=== PATIENT | female | born 1945 | race Asian ===

== ENCOUNTER 2025-02-18 16:48 | Emergency (ER) | payer MEDICARE, MEDICAID, SELFPAY ==
[2025-02-18 17:04] VITALS: BP 173/104; PULSE 75; PULSE 98; RESP 20; RESP 29; TEMP 36.6; O2SAT 87; O2SAT 89; BMI 32.5
--- NOTE | 2025-02-18 17:13 | EDNOTE_ITS ---
ED OB Contraction Preg RMI/HPI General Chief complaint: Vaginal Bleeding Stated complaint: ALTERED Time Seen by Provider: 02/18/25 17:09 Arrival date/time: 02/18/25 16:48 RME / HPI RME / HPI Narrative: 80 year old female with history of CVA with hemiplegia and hemiparesis, atrial fibrillation, hypertension, hyperlipidemia presents to the ED BIBA from [facility] for evaluation of vaginal bleeding today. Per medics, [place] staff rep orted patient began bleeding at 12 noon today and progressively worsening. On their arrival noted a copious amount of bleeding from vagina and placed dressing prior to transport. Per medics, [facility] staff reported history of previous vaginal bleed however were not able to provide any additional details or history stating they were not well acquainted with the patient. Medics state en route noted patient to have episodes of confusion and a GCS of 14. Baseline mental status unknown. Patient is a poor historian and unable to provide any additional history. Related Data Home Medications ?Medication ?Instructions ?Recorded ?Confirmed amlodipine 2.5 mg tablet 2.5 mg PO QDAY 11/07/2105/12 atorvastatin 10 mg tablet 10 mg PO HS 11/07/21 3 acetaminophen 325 mg tablet 650 mg PO Q6HR PRN Pain 06/08/23 apixaban 5 mg tablet (Eliquis) 1 tab PO BID 07/09/22 0 06/08/23 latanoprost 0.005 % eye drops 1 drp ophthalmic (eye) H S 07/09/22 06/08/23 oxybutynin chloride 5 mg 1 tab PO QDAY 07/09/2206/08 tablet,extended release 24 hr cholecalciferol (vitamin D3) 25 2,000 unit PO QDAY 06/08/23 mcg (1,000 unit) tablet metoprolol tartrate 25 mg tablet 25 mg PO QDAY 3 06/08/23 bisacodyl 10 mg rectal suppository 10 mg ND UD PRN Con stipation 06/08/23 06/08/23 (Dulcolax (bisacodyl)) magnesium hydroxide 400 mg/5 mL 30 ml PO Q24H PRN Cons tipation 06/08/23 06/08/23 oral suspension (Milk of Magnesia) pantoprazole 40 mg tablet,delayed 40 mg PO QDAY GERD 0 06/08/23 06/08/23 release (Protonix) sodium phosphates 19 gram-7 118 ml ND Q72H PRN Constip ation 06/08/23 06/08/23 gram/118 mL enema (Fleet Enema) Allergies Allergy/AdvReac Type Severity Reaction Status Date / Time codeine Allergy Verified 05/28/23 15:02 Review of Systems Review of Systems Narrative Review of Systems: GEN: No fever, no chills EYES: No discharge, no pain HEENT: No ear pain, no congestion, no sore throat PULM: No shortness of breath, no cough, no congestion CV: No chest pain, no palpitations GI: No nausea, no vomiting, no diarrhea, no pain, no constipation : +vaginal bleeding. No frequency, no urgency, no dysuria MUSC/SKEL: No joint pain, no back pain SKIN: No rash PSYCH: No hallucinations, no depression HEME/LYMPH: +hx of eliquis use although not on current medication list, +hx of vaginal and rectal bleeding. NEURO: No weakness, no headache Past Medical History Past Medical History NEUROLOGIC: Positive Cerebrovascular Accident and Dementia CARDIAC: Positive Myocardial Infarction, Cardiac Arrhythmia, Atrial Fibrillation, Hypercholesterolemia and Hypertension GASTROINTESTINAL: Positive Gastrointestinal Bleed and Hemorrhoids MUSCULOSKELETAL: Positive Musculoskeletal Disorders, Arthritis, Osteoporosis and Fractures ENT: Positive Glaucoma OTHER HISTORY: Positive Falls Family History FAMILY HISTORY: Negative Family Respiratory Disorders, Family Cardiac Disorders, Family Gastrointestinal Problems, Family Cancer, Family Surgery or Family Anesthesia Reaction Surgical History SURGICAL: Negative Cardiac Surgery, Open Heart Surgery, Coronary Artery Bypass Graft, Valve Replacement, Vascular Surgery, Cardiac Catheterization, Pacemaker, Angiogram, Endocrine Surgery, Thyroidectomy, Ear Surgery, Tympanostomy Tube, Eye Surgery, Nose Surgery, Oral Surgery, Tonsillectomy, Adenoidectomy, Cochlear Implant, Corneal Transplant, Abdominal Surgery, Gastric Bypass Surgery, Gastrostomy, Bowel Surgery, Nephrectomy, Transurethral Resection, Joint Replacement, Amputation, Arthroscopy, Neurologic Surgery, Brain Shunt, Mastectomy, Lumpectomy or Vasectomy Social History SMOKING STATUS: Never smoker SUBSTANCE USE: does not use ED Exam Narrative Physical exam: GENERAL APPEARANCE: Awake, well-developed, well-nourished, no acute distress HEENT: Normocephalic, atraumatic; pupils equal, round, reactive to light; EOMI; mucous membranes pink, moist; oropharynx clear NECK: Supple LUNGS: CTABL; no wheezes, no rales, no rhonchi HEART: Regular rate, regular rhythm; normal S1, S2; no murmurs ABDOMEN: non distended; normal BS; soft, no tenderness, no guarding, no rebound; no masses, no organomegaly, no hernia PELVIC EXAM: Passing multiple clots vaginally, suctioned copious amount of blood from vagina, patient has a pessary device, BACK: no CVA tenderness EXTREMITIES: atraumatic; no edema NEUROLOGIC: awake; alert; cranial nerves II-XII grossly intact PSYCHIATRIC: appropriate mood and affect SKIN: warm, dry, normal color; no rashes Course Course Course Narrative: 1735: OBGYN Dr. Robles at bedside Quality Measures none Orders Category Date Time Status CT head/brain wo con Stat Exams 02/19/25 07:27 Taken Blood Culture (Lab) Stat Lab 02/19/25 08:05 Received CBC Stat Lab 02/18/25 17:30 Completed CBC Stat Lab 02/19/25 02:21 Completed CMP [Comprehensive Metabolic Panel] Stat Lab 02/18/25 17:30 Completed CMP [Comprehensive Metabolic Panel] Stat Lab 02/19/25 07:28 Received Lactate (Lactic Acid) Stat Lab 02/19/25 08:12 Completed PT [Prothrombin Time with INR] Stat Lab 02/18/25 17:30 Completed PT [Prothrombin Time with INR] Stat Lab 02/19/25 08:12 Received PTT [Partial Thromboplastin Time] Stat Lab 02/18/25 17:30 Completed Urinalysis, C/S if Indicated Stat Lab 02/19/25 07:29 Ordered Venous Blood Gas Stat Lab 02/19/25 08:12 Completed Morphine Inj Med 02/18/25 18:03 Discontinued 4 mg IVP X1 ONE Ondansetron Inj [Zofran Inj] Med 02/18/25 18:03 Discontinued 4 mg IV X1 ONE Vital Signs Vital signs: Vital Signs Temperature 97.9 F 02/18/25 17:04 Pulse Rate 75 02/18/25 17:04 Respiratory Rate 29 H 02/18/25 17:04 Blood Pressure 173/104 H 02/18/25 17:04 Pulse Oximetry (%) 89 L 02/18/25 17:04 Vaginal Bleeding MDM Narrative MDM Narrative: ILetha, am scribing for and in the presence of Dr. Tan. Patient data External records reviewed:: [facility] previous records, EMS form and Skilled Nursing records (I reviewed txfer ppw from [facility] ) Clinical information provided by:: EMS Social determinants that could affect healthcare access:: housing (SNF resident ) Patient has the following chronic illnesses:: CVA with hemiplegia and hemiparesis, atrial fibrillation, hypertension, hyperlipidemia Hx of vaginal and rectal bleed How is presenting disease/condition affected by chronic disease/condition?: exacerbated by Evaluation data The following diagnostics were reviewed and interpreted by me:: lab results Lab and/or radiology exams considered but not ordered:: None Interpretation Summary: No labs resulted prior to discharge Medications / Prescriptions Medications or Prescriptions considered but not ordered:: None Medication administrations:: Medication Administration History Discontinued Medications Morphine Sulfate (Morphine Sulf Inj 10 Mg/Ml Vial) 4 mg IVP X1 ONE Stop: 02/18/25 18:04 Last Admin: 02/18/25 18:11 Dose: 4 mg Documented By: TRIXIE Ondansetron HCl (Ondansetron Inj 2 Mg/Ml Inj 2 Ml) 4 mg IV X1 ONE; Protocol Stop: 02/18/25 18:04 Last Admin: 02/18/25 18:10 Dose: 4 mg Documented By: TRIXIE See above Consultations Consultation(s) initiated? (list below): Yes Consultation #1 (Physician, Specialty, Details): I spoke with OB Dr. Robles, states she will come down and evaluate the patient. Time: 17:15 Consultation #2 (Physician, Specialty, Details): Dr. Robles reports she was unable to remove pessary in the ED and will take the patient to the OR. Diagnosis Vaginal Bleeding Differential Diagnosis: dysfunctional uterine bleeding, menometrorrhagia and vaginal bleeding Most likely diagnosis given after review of the tests above:: Vaginal bleeding Admission Indicated Admission indicated?: indicated Admission Request Was there a request for admission?: Yes Admission Attestation Admission request attestation: Discussed case with [] from Hospitalist service regarding admission. Discussed patients ED course, exam findings, labs, and radiology results. The Hospitalist [agrees,declines] to accept the patient for admission. Disposition Plan Disposition Plan: Admit (to Dr. Robles) Critical Care Time Critical Care Time Critical Care Time: Yes Total Critical Care Time (min.): 30 Attestation: The high probability of sudden, clinically significant deterioration in the patient's condition required the highest level of my preparedness to intervene urgently. The services I provided to this patient were to treat and/or prevent clinically significant deterioration. Services included the following: chart data review, reviewing nursing notes and/or old charts, documentation time, data governance consultant collaboration regarding findings and treatment options, medication orders and management, direct patient care, vital sign assessments and ordering, interpreting and reviewing diagnostic studies and lab tests. Aggregate critical care time includes only time during which I was engaged in work directly related to the patient's care, as described above, whether at bedside or elsewhere in the Emergency Department. It did not include time spent performing other reported procedures or the services of residents, students, nurses or physician assistants. Discharge Plan Plan Patient Disposition: [facility] Pt Being Transferred to: [facility] Service Needed for Transfer: Urogynecology Disposition Comment: Accepted by Dr. Orourke Prescriptions/Referrals Prescriptions/Med Rec: No Action latanoprost 0.005 % drops 1 drp OPHTHALMIC (EYE) HS Rx Instructions: sánchez. eyes acetaminophen 325 mg Tablet 650 mg PO Q6HR PRN (Reason: Pain) Rx Instructions: do not exceed 3gm in 24 hrs oxybutynin chloride 5 mg tablet extended release 24hr 1 tab PO QDAY Eliquis 5 mg tablet 1 tab PO BID atorvastatin 10 mg tablet 10 mg PO HS amlodipine 2.5 mg tablet 2.5 mg PO QDAY Rx Instructions: hold for BP <110/60 or HR <60 cholecalciferol (vitamin D3) 25 mcg (1,000 unit) Tablet 2,000 unit PO QDAY metoprolol tartrate 25 mg tablet 25 mg PO QDAY Rx Instructions: hold for BP <110/60 or HR <60 magnesium hydroxide [Milk of Magnesia] 400 mg/5 mL Suspension 30 ml PO Q24H PRN (Reason: Constipation) Rx Instructions: give every 24hours as needed for constipation if no BM for 3 days bisacodyl [Dulcolax (bisacodyl)] 10 mg Suppository 10 mg ND UD PRN (Reason: Constipation) Rx Instructions: Q48 HRS PRN Fleet Enema 19-7 gram/118 mL Enema 118 ml ND Q72H PRN (Reason: Constipation) Rx Instructions: to be administered if dulcolax suppository is ineffective pantoprazole [Protonix] 40 mg tablet,delayed release (DR/EC) 40 mg PO QDAY Referrals: No Primary/Family,Physician [Primary Care Provider] - In 1 week Problem List Clinical Impression: Vaginal pessary erosion into vaginal wall Patient/Caregiver Discharge Instructions Print Language: Kiswahili Stand Alone Forms: [employer] Award Info., Patient Portal Info Letter
[2025-02-18 17:24] VITALS: RESP 20; RESP 89; O2SAT 95
[2025-02-18 17:31] VITALS: PULSE 68
--- NOTE | 2025-02-18 17:36 | PC.NURSE ---
OB provider at bedside to evaluate pt
--- NOTE | 2025-02-18 17:56 | PC.NURSE ---
er provider at bedside. suctioned vaginal area with 100cc output
--- NOTE | 2025-02-18 18:09 | PC.NURSE ---
ob provider reattampted to remove pessary. unsuccessful
[2025-02-18] MEDS: ONDANSETRON INJ 2 MG/ML INJ 2 ML 4 MG IV (18:10)
[2025-02-18] MEDS: MORPHINE SULF INJ 10 MG/ML VIAL 4 MG IVP (18:11)
[2025-02-18 18:28] LABS: Basophils % (Auto) 0 % (0-2.5); Eosinophils # (Auto) 0.1 Thou/mm3 (0.0-0.5); Eosinophils % (Auto) 1 % (0-10); Hematocrit 49.8 % (36.0-46.0); Immature Granulocytes % (Auto) 0 % (0-0); Immature Granulocytes Auto 0.05 Thou/mm3 (0.00-0.00); Lymphocytes # (Auto) 1.4 Thou/mm3 (1.0-4.8); Lymphocytes % (Auto) 10 % (10-50); Mean Corpuscular HGB Conc 32.1 g/dl (31.0-37.0); Mean Corpuscular Hemoglobin 29.3 pg (25.0-35.0); Mean Corpuscular Volume 91 fL (80-100); Monocytes # (Auto) 1.2 Thou/mm3 (0.0-0.8); Monocytes % (Auto) 8 % (0-12); Neutrophils # (Auto) 11.9 Thou/mm3 (1.8-7.7); Neutrophils % (Auto) 81 % (37-80); Nucleated Red Blood Cell % 0 /100 WBC (0); Platelet Count 266 Thou/mm3 (140-440); RDW Standard Deviation 46.1 fL (36.4-46.3); Red Blood Count 5.46 Miln/mm3 (4.00-5.20); White Blood Count 14.6 Thou/mm3 (3.6-11.0)
--- NOTE | 2025-02-18 18:31 | ESCONSULT_ITS ---
SEX OFFENDER TREATMENT PROFESSIONAL HPI Data of Consult Primary Care Provider: Physician No Primary/Family Consult Narrative History of present illness: Ranjith is an 80yo F with hx of CVA with hemiplegia and hemiparesis, a-fib, HTN, hyperlipidemia presenting to the ED BIBA from [facility] for evaluation of vaginal bleeding today. Per medics, [place] staff reported patient began bleeding at 12 noon today and progressively worsening. On their arrival noted a copious amount of bleeding from vagina and placed dressing prior to transport. Per medics, [facility] staff reported history of previous vaginal bleed however were not able to provide any additional details or history stating they were not well acquainted with the patient. Medics state en route noted patient to have episodes of confusion and a GCS of 14. Baseline mental status unknown. Patient is a poor historian. She states that pessary was placed at least 5 years ago, and has not been regularly taken out and cleaned during that time. It was placed because she was uncomfortable all the time, sitting, going out, doing anything. She is not sure if it was placed for cystocele or uterine prolapse. Unable to give any further details. Dr. Tan performed a speculum exam and noted a pessary within the vagina. States approx 150ml of blood suctioned from vagina. cc:: cc: Review of Systems Review of Systems ROS Unobtainable: unobtainable due to mental status Meds Home Medications and Allergies Home Medications ?Medication ?Instructions ?Recorded ?Confirmed ?Type amlodipine 2.5 mg tablet 2.5 mg PO QDAY 11/07/2105/12 History atorvastatin 10 mg tablet 10 mg PO HS 11/07/21 3 History acetaminophen 325 mg tablet 650 mg PO Q6HR PRN Pain 06/08/23 History apixaban 5 mg tablet (Eliquis) 1 tab PO BID 07/09/22 0 06/08/23 History latanoprost 0.005 % eye drops 1 drp ophthalmic (eye) H S 07/09/22 06/08/23 History oxybutynin chloride 5 mg 1 tab PO QDAY 07/09/2206/08 History tablet,extended release 24 hr cholecalciferol (vitamin D3) 25 2,000 unit PO QDAY 06/08/23 History mcg (1,000 unit) tablet metoprolol tartrate 25 mg tablet 25 mg PO QDAY 2 3 06/08/23 History bisacodyl 10 mg rectal suppository 10 mg NH UD PRN Con stipation 06/08/23 06/08/23 History (Dulcolax (bisacodyl)) magnesium hydroxide 400 mg/5 mL 30 ml PO Q24H PRN Cons tipation 06/08/23 06/08/23 History oral suspension (Milk of Magnesia) pantoprazole 40 mg tablet,delayed 40 mg PO QDAY GERD 0 06/08/23 06/08/23 History release (Protonix) sodium phosphates 19 gram-7 118 ml NH Q72H PRN Constip ation 06/08/23 06/08/23 History gram/118 mL enema (Fleet Enema) Allergies Allergy/AdvReac Type Severity Reaction Status Date / Time codeine Allergy Verified 05/28/23 15:02 Exam - SEX OFFENDER TREATMENT PROFESSIONAL Vital Signs Temp Pulse Resp BP Pulse Ox O2 Flow Rate 97.9 F 68 20 173/104 H 95 3 02/18/25 17:04 02/18/25 17:31 02/18/25 17:24 02/18/25 17:04 02/18/25 17:24 02/18/25 17:24 Narrative Exam General: well developed, well nourished, no acute distress Cardiac: normal heart rate Lungs: breathing without distress Abdomen: soft, non-tender, no rebound or guarding Extremities: no edema of BLE Female RN home theater expert was present for examinations. SCE: NEFG, end of Gelhorn pessary visible with small amount of blood noted in the vaginal vault. I attempted to remove the pessary by grasping the end of the Gelhorn, but the base of the pessary is deeply impacted in the vaginal tissue and patient was uncomfortable with removal attempt, so I re-attempted once more after she was given zofran 4g IV x1 with morphine 4g IV x1. Again, the Gelhorn would only move forward a meer couple centimeters, but no further because the vaginal tissue has narrowed around it with time and wedged it in. Unable to place a finger behind the pessary to reduce suction. Unable to observe what area has eroded as the source of bleeding. Patient had loss of urine during the pessary removal attempts, unable to determine if she has vesicovaginal fistula vs simple urinary incontinence. There is a notable odor present. SEX OFFENDER TREATMENT PROFESSIONAL - Results Labs 02/18/25 17:30 02/18/25 17:30 Assessment and Plan Assessment and plan (1) Vaginal pessary erosion into vaginal wall: Status: Acute Assessment and plan: Ranjith is an 80yo F with hx of CVA with hemiplegia and hemiparesis, a-fib, HTN, hyperlipidemia with impacted Gelhorn pessary s/p placement > 5 years ago with no pessary maintenance since, presenting with vaginal bleeding likely related to vaginal erosion. Based on Dr. Tan (ER physician) and my encounters, approximately 200ml of blood per vagina from prior to and during ER encounter. Not actively hemorrhaging, but having continuous slow bleeding. She has no tachycardia or hypotension, hemodynamically stable at this time. Unable to remove Gelhorn pessary to further evaluate and address erosion. My recommendation is for Ranjith to be transferred to a facility that has a Uro- Vehicle Leasing And Rental Manager that is well-versed in removing impacted pessaries, treating severe vaginal erosion and able to rule out (and treat if present) fistula. I discussed my recommendation and rationale with Dr. Celestin. (2) Vaginal bleeding: Status: Acute (3) Problem with vaginal pessary: Status: Acute (3) Problem with vaginal pessary Qualifiers: Encounter type: initial encounter Qualified Code(s): T83.9XXA - Unspecified complication of genitourinary prosthetic device, implant and graft, initial encounter
--- NOTE | 2025-02-18 18:34 | PD.EDADDENDU ---
Emergency Room Addendum Addendum Narrative: 183: Spoke with Dr. Robles, MATTRESS AND BOXSPRINGS SUPERVISOR, who states the patient needs a higher [id number] for uro-gynecology that is well-versed in removing impacted pessaries, treating severe vaginal erosion and able to rule out (and treat if present) fistula. See her note for full details. The patient was placed in ED observation care at 02/18/25 at 1830 hours. The patient was placed in ED observation care because of pending transfer. The patients past medical history, social history, and family history were reviewed. Patient is hemodynamically stable. Will hold Eliquis and recheck HnH in 6 hours. There is no blood clots noted in the patient's vaginal area per Dr. Robles's evaluation. [facility] declined the patient for transfer due to not having the available services. 2106: Spoke with [facility]'s transfer center. Awaiting callback on whether or not they accept the patient for transfer. 2206: Spoke with [facility]'s transfer center. They spoke with their dam tender, Dr. Wade, who declined the patient for transfer due to needing a higher [id number]. Recommends [facility] or [facility]. 0117: [facility] declined the patient due to being at capacity. 0203: Spoke with [facility]'s transfer center. Declined the patient for transfer due to not having the available services. Repeat HnH is 14.9/45.8. She remains hemodynamically stable. [facility] declined the patient for transfer due to not having the available services. 0439: Blood pressure is 117/73 with a HR of 99 and RR of 16. She is saturating at 95% on room air. Spoke with [facility] transfer center. Dr. Orourke accepts the patient for transfer.
[2025-02-18 18:38] LABS: Alanine Aminotransferase 18 U/L (10-49); Albumin, Serum 3.6 gm/dL (3.4-4.8); Albumin/Globulin Ratio 1.3 (1.2-2.2); Alkaline Phosphatase 118 U/L (46-116); Anion Gap 4 (7-16); Aspartate Amino Transferase 18 U/L (0-34); BUN/Creatinine Ratio 18 Ratio (12-20); Bilirubin,Total 0.8 mg/dL (0.3-1.2); Blood Urea Nitrogen 9 mg/dL (9-23); Calcium (Corrected) 9.3 mg/dL (8.5-10.1); Carbon Dioxide 34.6 mMol/L (20.0-31.0); Chloride 102 mMol/L (98-107); Creatinine (Component) 0.5 mg/dL (0.6-1.3); Estimated Creatinine Clearance 93.7 mL/min (>60); Globulin 2.8 gm/dL (2.3-3.5); Glucose 105 mg/dL (74-106); Osmolality,Calculated 279 (275-295); Potassium 4.2 mMol/L (3.4-5.1); Sodium 141 mMol/L (136-145); Total Protein 6.4 gm/dL (5.7-8.2); eGFR > 60 See Note
[2025-02-18 19:10] LABS: Partial Thromboplastin Time 48.4 Seconds (22.0-36.0)
[2025-02-18 19:11] VITALS: PULSE 78; PULSE 86; RESP 17; O2SAT 95
[2025-02-18 19:11] LABS: Prothrombin Time > 63.0 Seconds (9.0-12.2)
--- NOTE | 2025-02-18 20:19 | PC.NURSE ---
FAXED INFORMATION TO [facility].
--- NOTE | 2025-02-18 20:20 | PC.NURSE ---
MICHELET PERSAUD FROM [facility] SAID THEY DON'T HAVE URO-MASTER YACHT.
--- NOTE | 2025-02-18 22:11 | PC.NURSE ---
[facility] CALLED BACK, DECORATING AND ASSEMBLY SUPERVISOR SAID PT NEED HIGHER LEVEL OF CARE.
[2025-02-18 23:26] VITALS: BP 120/84; PULSE 96; RESP 16; O2SAT 96
[2025-02-19 01:03] VITALS: BP 115/70; PULSE 114; RESP 12; TEMP 36.8; O2SAT 97
--- NOTE | 2025-02-19 01:17 | PC.NURSE ---
CALLED AND FAXED INFORMATION TO [facility], PT IS DENIED DUE TO FULL CAPACITY.
[2025-02-19 02:29] LABS: Basophils % (Auto) 0 % (0-2.5); Eosinophils # (Auto) 0.1 Thou/mm3 (0.0-0.5); Eosinophils % (Auto) 1 % (0-10); Hematocrit 45.8 % (36.0-46.0); Hemoglobin 14.9 g/dL (12.0-16.0); Immature Granulocytes % (Auto) 0 % (0-0); Immature Granulocytes Auto 0.03 Thou/mm3 (0.00-0.00); Lymphocytes # (Auto) 1.3 Thou/mm3 (1.0-4.8); Lymphocytes % (Auto) 10 % (10-50); Mean Corpuscular HGB Conc 32.5 g/dl (31.0-37.0); Mean Corpuscular Hemoglobin 29.6 pg (25.0-35.0); Mean Corpuscular Volume 91 fL (80-100); Monocytes # (Auto) 1.1 Thou/mm3 (0.0-0.8); Monocytes % (Auto) 9 % (0-12); Neutrophils # (Auto) 10.7 Thou/mm3 (1.8-7.7); Neutrophils % (Auto) 80 % (37-80); Nucleated Red Blood Cell % 0 /100 WBC (0); Platelet Count 222 Thou/mm3 (140-440); RDW Standard Deviation 46.6 fL (36.4-46.3); Red Blood Count 5.03 Miln/mm3 (4.00-5.20); White Blood Count 13.3 Thou/mm3 (3.6-11.0)
--- NOTE | 2025-02-19 03:28 | PC.NURSE ---
[facility] , NO URO-LIFE TEACHER.
--- NOTE | 2025-02-19 04:00 | PC.NURSE ---
[facility] CALLED BACK , THEY DON'T HAVE URO-WORKERS COMPENSATION CLAIMS ANALYST SERVICES AVAILABLE .
--- NOTE | 2025-02-19 04:19 | PC.NURSE ---
CALLED [facility] AND GAVE THEM PT INFORMATION.
--- NOTE | 2025-02-19 04:43 | PC.NURSE ---
[facility] CALLED BACK AND TALKING TO DR. FLEMING.
[2025-02-19 05:21] VITALS: BP 113/79; PULSE 108; RESP 18; TEMP 37.2; O2SAT 95
--- NOTE | 2025-02-19 07:27 | XR_ITS ---
Examination: CT brain head without contrast. 2-D sagittal coronal reconstructions Date and time of exam:February 19, 2025 0836 hrs. Indications: Difficulty speaking this week CTDI: vol (mGy):48.2 DLP: (mGycm):961 Technique: Multiple CT axial sections of the brain have been obtained, 5 mm slice thickness. Contrast has not been administered. 2-D sagittal, coronal reconstructions have been obtained Low dose protocols were performed. One or more of the following dose reduction techniques were used; automated exposure control, adjustment of the mA and/or KV according to patient size, use of iterative reconstruction technique. Findings: No significant ventricular enlargement. Intra-axial or extra-axial hemorrhage density is not seen. No mass effect or midline shift Basal cisterns are not remarkable. Fourth ventricle is midline. Cranial vault intact. Impression: Negative for acute hemorrhage, mass effect or midline shift Consider brain MRI follow-up stroke protocol
--- NOTE | 2025-02-19 07:49 | PC.NURSE ---
Called [facility] and spoke to Tamica who confirm that this Pt does have expressive aphasia. Dr. Colin made aware.
[2025-02-19 08:18] LABS: Lactate (Lactic Acid) 0.8 mMol/L (0.4-2.0)
[2025-02-19 08:20] LABS: Base Excess, Venous 10 (-3-3); O2 Saturation, Venous 83 % (96-97); PCO2, Venous 70 mmHg (36-56); PO2, Venous 48 mmHg (15-58); pH, Venous 7.35 (7.33-7.66)
[2025-02-19 08:44] LABS: INR 1.1 (0.9-1.3); Prothrombin Time 11.6 Seconds (9.0-12.2)
[2025-02-19 08:48] LABS: Alanine Aminotransferase 15 U/L (10-49); Albumin, Serum 3.4 gm/dL (3.4-4.8); Albumin/Globulin Ratio 1.3 (1.2-2.2); Alkaline Phosphatase 100 U/L (46-116); Anion Gap 3 (7-16); Aspartate Amino Transferase 12 U/L (0-34); BUN/Creatinine Ratio 18 Ratio (12-20); Bilirubin,Total 1.8 mg/dL (0.3-1.2); Blood Urea Nitrogen 9 mg/dL (9-23); Calcium 9.1 mg/dL (8.3-10.6); Calcium (Corrected) 9.6 mg/dL (8.5-10.1); Carbon Dioxide 36.8 mMol/L (20.0-31.0); Chloride 100 mMol/L (98-107); Creatinine (Component) 0.5 mg/dL (0.6-1.3); Estimated Creatinine Clearance 93.7 mL/min (>60); Globulin 2.6 gm/dL (2.3-3.5); Glucose 103 mg/dL (74-106); Osmolality,Calculated 278 (275-295); Potassium 4.6 mMol/L (3.4-5.1); Sodium 140 mMol/L (136-145); eGFR > 60 See Note
--- NOTE | 2025-02-19 09:00 | PD.EDADDENDU ---
Emergency Room Addendum <Letha Patricia - Last Filed: 02/19/25 09:12> Addendum Narrative: 0600: Care assumed from Dr. Celestin, the previous shift emergency physician. Past medical, surgical, social and family history reviewed. Vitals and home medications reviewed. I will assume the care of the patient at this time, pending transfer to [facility]. Evidently EMS is scheduled to p/u patient at 09:30 AM. Please refer to the emergency department record for history and examination from initial visit.?The following addendum documentation note is intended to reflect any pending information, findings, or radiology results not included in the patient?s initial chart. EMS notes reviewed by me. Nursing notes reviewed by me. Vital signs reviewed by me. [facility] records reviewed by me. I reviewed txfer ppw from [facility]. [facility] records reviewed by me. 0720: On my assessment patient is noted to have expressive aphasia, head CT ordered. Additionally ordered repeat labs. 0745: Per RN who spoke with [facility] staff, patient at baseline has expressive aphasia and is currently on blood thinners. <Chace Colin MD - Last Filed: 02/19/25 09:12> Addendum Narrative: 0600: Care assumed from Dr. Celestin, the previous shift emergency physician. Past medical, surgical, social and family history reviewed. Vitals and home medications reviewed. I will assume the care of the patient at this time, pending transfer to [facility]. Evidently EMS is scheduled to p/u patient at 09:30 AM. Please refer to the emergency department record for history and examination from initial visit.?The following addendum documentation note is intended to reflect any pending information, findings, or radiology results not included in the patient?s initial chart. EMS notes reviewed by me. Nursing notes reviewed by me. Vital signs reviewed by me. [facility] records reviewed by me. I reviewed txfer ppw from [facility]. [facility] records reviewed by me. 0720: On my assessment patient is noted to have expressive aphasia, head CT ordered. Additionally ordered repeat labs. 0745: Per RN who spoke with [facility] staff, patient at baseline has expressive aphasia and is currently on blood thinners. When I saw this patient this morning she has an obvious expressive aphasia at the chart revealed no history of that yet she has had a previous stroke with dysphagia. She got a CT of the head since her PT was quite elevated and that was repeated and the PT came back normalized at 11.6. Suggest the first PT INR were is an error. We did [facility] found that this patient is presently at her baseline.. We tried to collect a cath urine for her but she continually leaks with blood and this was unsuccessful. CT images came back at 0911 hrs. I reviewed them and there is no obvious blood or fracture seen. There is some attenuated parenchyma most likely consistent with old stroke. The second CMP is still pending at 0912 hrs. EMS is here at 0910 hrs. taking report.
[2025-02-19 09:30] VITALS: BP 118/76; PULSE 86; RESP 18; TEMP 36.6; O2SAT 97
--- NOTE | 2025-02-19 09:54 | PC.NURSE ---
Called [facility] and spoke to Gabby PERSAUD to whom i gave report to
--- NOTE | 2025-02-19 12:19 | PRELIM_ITS ---
CT scan of the head without intravenous contrast (axial sections with sagittal and coronal reformats) February 19, 2025 0836 hours Clinical history: Expressive aphasia uncertain duration Compared with the prior study dated November 07, 2021 Findings: There is no evidence of intracranial hemorrhage, mass effect or midline shift. There are periventricular white matter hypodensities, compatible with chronic small vessel ischemia. The CSF spaces are prominent consistent with volume loss. There is atheromatous calcification of the intracranial arteries. The calvarium is unremarkable. The mastoid air cells and the visualized paranasal sinuses are clear. Impression: No evidence of intracranial hemorrhage, mass effect or midline shift. Chronic small vessel ischemia and volume loss, Please note that subtle early infarcts are better assessed using diffusion weighted MR imaging if clinically indicated. Report Electronically Signed By: Bebeto Knox 02/19/2025 12:18:11 PM [EST]
== END 2025-02-19 09:31 | disposition short-term general hospital (02) ==
PROVIDERS: Emergency Medicine; Emergency Provider Emergency Medicine
DX: T83.89XA Other specified complication of genitourinary prosthetic devices, implants and grafts, initial encounter (principal); N89.8 Other specified noninflammatory disorders of vagina; N93.9 Abnormal uterine and vaginal bleeding, unspecified; R47.01 Aphasia; I48.91 Unspecified atrial fibrillation; I10 Essential (primary) hypertension; E78.5 Hyperlipidemia, unspecified; F03.90 Unspecified dementia, unspecified severity, without behavioral disturbance, psychotic disturbance, mood disturbance, and anxiety; I69.359 Hemiplegia and hemiparesis following cerebral infarction affecting unspecified side; Z79.01 Long term (current) use of anticoagulants; Y76.2 Prosthetic and other implants, materials and accessory obstetric and gynecological devices associated with adverse incidents; Y84.8 Other medical procedures as the cause of abnormal reaction of the patient, or of later complication, without mention of misadventure at the time of the procedure
CPT/HCPCS: 36415; 70450; 80053; 81001; 82803; 83605; 85025; 85610; 85730; 87040; 96374; 96375; 99291; J2270; J2405

== ENCOUNTER 2025-05-15 08:10 | Emergency (ER) | payer MEDICARE, MEDICAID, SELFPAY ==
--- NOTE | 2025-05-15 08:19 | XR_ITS ---
Examination: AP chest single view Technique one AP portable semiupright chest single view Date and time: May 15, 2025, 0921 hrs. Comparison May 27, 2013 Indications: Chest pain shortness of breath today. Findings: Mild enlargement left ventricle Enlarged aneurysmal dilatation thoracic aorta. Mild vascular congestion. No lobar pneumonia or pulmonary edema Reversal shoulder arthroplasty Impression: Aneurysmal dilatation thoracic aorta. Mild vascular congestion.
--- NOTE | 2025-05-15 08:20 | PD.EDNEURO ---
Neuro Symptoms Deficit-RME/HPI General Chief Complaint: Altered Mental Status Stated Complaint: ALTERED Time Seen by Provider: 05/15/25 08:40 Arrival date/time: 05/15/25 08:10 RME / HPI RME / HPI Narrative: DR. ZHENG MAIN ED EVALUATION: This section includes all my notes and documentations, including HPI, PE, and ED course.? Bryce Zheng MD HPI: 80 year old female with past medical history hypertension, hyperlipidemia, CAD, dementia, OR, arthritis, and osteoporosis presents to the Emergency Department [facility] from [facility] with altered mental status 15-20 minutes prior to arrival. Patient is not alert and awake as normal and not verbal. Per EMS, BP was 175/90, HR 106, and hypoxic needing oxygen. No other obvious complaints. ROS: Can't obtain history from the patient due to AMS Physical Exam: General: Lethargic and nonverbal. Hypoxia noted. Eyes:? Conjunctivae and lids clear.? EOMI.? PERRL. ENT:? No nasal congestion.? Neck:? Supple.? No carotid bruit.? No JVD.?? Heart:? RRR.? Lungs:? No respiratory distress.? Good air movement.? No severe rhonchi, wheezing, rales.?? Abdomen:? Soft and nontender.? Legs:? No clubbing, cyanosis, edema.? Skin:? Warm and dry.?? Neuro: GCS 10. Eyes spontaneously open. Grunts occasionally (-4). Does not obey commands but localizes pain (-1). Right arm/leg weakness noted. Left arm/leg contractures noted. I reviewed EMS and alf notes. I reviewed all diagnostic test results. My interpretation of the EKG is sinus rhythm with no acute ST?T changes. My interpretation of the chest x-ray is NAD. My review of the head CT report is?large acute left basal ganglia hemorrhage. My review of the head/neck CTA report is NAD. Blood tests and urine tests remarkable for lactic acid 2.5 and LFT elevation. At this point, diagnoses include intracranial hemorrhage. Treatment here included IV fluid, Kcentra, and labetalol. Patient intubated to protect her airways. See procedure note. Etomidate 20 mg and succinylcholine 100 mg and propofol drip used. Endotracheal Intubation Procedure Note A time out was performed. My hands were washed immediately prior to the procedure. I wore a surgical cap, mask with protective eyewear, gown and gloves throughout the procedure. The patient was placed on a family advocate including continuous pulse oximetry. Rapid Sequence Intubation was conducted. The patient received 20 mg of Etomidate for induction and 100 mg of Succinylcholine for adequate paralysis. Using a 7.5 laryngoscope and a size 4 endotracheal tube with stylet, the patient was intubated on the first attempt. The stylet was removed and cuff balloon was inflated. Appropriate endotracheal tube position was confirmed by direct visualization of vocal cord passage, fogging of the tube, CO2 colormetric indicator and symmetric breath sounds. The tube was secured at 22 cm at the lips. Post intubation chest x-ray confirmed good position. Patient remained stable. I discussed the case with our telehealth neurologist.? About the presentation and exam and diagnostics and treatments here.? Recommended transfer to neurosurgery. I discussed the case with Dr. Arceo ([facility] Neurosurgery).? About the presentation and exam and diagnostics and treatments here.? And need of further care there. Accepted the patient. Bryce Zheng MD Related Data Home Medications ?Medication ?Instructions ?Recorded ?Confirmed amlodipine 2.5 mg tablet 2.5 mg PO QDAY 11/07/21 06/08/23 atorvastatin 10 mg tablet 10 mg PO HS 11/07/21 06/08/23 acetaminophen 325 mg tablet 650 mg PO Q6HR PRN Pain 07/09/22 06/08/23 apixaban 5 mg tablet (Eliquis) 1 tab PO BID 07/09/22 06/08/23 latanoprost 0.005 % eye drops 1 drp ophthalmic (eye) HS 07/09/22 06/08/23 oxybutynin chloride 5 mg 1 tab PO QDAY 07/09/22 06/08/23 tablet,extended release 24 hr cholecalciferol (vitamin D3) 25 2,000 unit PO QDAY 05/27/23 06/08/23 mcg (1,000 unit) tablet metoprolol tartrate 25 mg tablet 25 mg PO QDAY 05/27/23 06/08/23 bisacodyl 10 mg rectal suppository 10 mg AR UD PRN Constipation 06/08/23 06/08/23 (Dulcolax (bisacodyl)) magnesium hydroxide 400 mg/5 mL 30 ml PO Q24H PRN Constipation 06/08/23 06/08/23 oral suspension (Milk of Magnesia) pantoprazole 40 mg tablet,delayed 40 mg PO QDAY GERD 06/08/23 06/08/23 release (Protonix) sodium phosphates 19 gram-7 118 ml AR Q72H PRN Constipation 06/08/23 06/08/23 gram/118 mL enema (Fleet Enema) Allergies Allergy/AdvReac Type Severity Reaction Status Date / Time codeine Allergy Verified 05/15/25 08:52 Course Quality Measures none Orders Category Date Time Status Bedside Blood Glucose NOW Care 05/15/25 08:22 Active Bedside COVID-19 Antigen Test NOW Care 05/15/25 08:20 Active Bedside Influenza A&B Antigen Test NOW Care 05/15/25 08:20 Active Relay Telegrapher NOW Care 05/15/25 08:22 Active Continuous Pulse Oximetry NOW Care 05/15/25 08:22 Completed EKG (ED ONLY) *Do not use* NOW Care 05/15/25 08:22 Completed Spangler to [place] Routine Care 05/15/25 08:58 Ordered Insert IV NOW Care 05/15/25 08:22 Active Intubation NOW Care 05/15/25 09:06 Active NIH Stroke Scale now Care 05/15/25 08:22 Active NPO NOW Care 05/15/25 08:22 Active Nurse Swallow Screen x1 Care 05/15/25 08:22 Active Consult to Neurology / Tele-Neurology Routine Cons 05/15/25 08:22 Active Referral - Sales Trainee Stat Cons 05/15/25 08:44 Active Transfer to another facility [Transfer/Discharge] Stat Discharge 05/15/25 09:[address] angio stroke protocol Stat Exams 05/15/25 08:[address] stroke protocol Stat Exams 05/15/25 08:22 Completed EKG (ED Only) Stat Exams 05/15/25 08:22 Draft XR chest 1V portable Stat Exams 05/15/25 08:19 Completed XR chest 1V post procedure Stat Exams 05/15/25 09:50 Taken B-Type Natriuretic Peptide Stat Lab 05/15/25 08:30 Completed Bilirubin,Direct Stat Lab 05/15/25 09:30 Completed Blood Culture (Lab) Stat Lab 05/15/25 08:30 Received C-Reactive Protein Stat Lab 05/15/25 09:30 Completed CBC Stat Lab 05/15/25 08:30 Completed Comprehensive Metabolic Panel Stat Lab 05/15/25 09:30 Completed ESR [Sed Rate (ESR)] Stat Lab 05/15/25 08:30 Completed Free T4 (Free Thyroxine) Stat Lab 05/15/25 09:30 Completed Lactate (Lactic Acid) Stat Lab 05/15/25 09:30 Results Magnesium Stat Lab 05/15/25 09:30 Completed Partial Thromboplastin Time Stat Lab 05/15/25 08:30 Completed Procalcitonin Stat Lab 05/15/25 09:30 Completed Prothrombin Time with INR Stat Lab 05/15/25 08:30 Completed Thyroid Stimulating Hormone Stat Lab 05/15/25 09:30 Completed Troponin I Stat Lab 05/15/25 09:30 Completed Urinalysis Stat Lab 05/15/25 09:08 Completed Urine Culture Stat Lab 05/15/25 08:22 Received ESMOLOL in NS 2000 MG IVPB Med 05/15/25 08:45 Discontinued 2,000 mg in 100 ml IV 500 mcg/kg/min Etomidate Inj [Amidate Inj] Med 05/15/25 09:05 Discontinued 20 mg IVP X1 ONE Labetalol IV [Trandate IV] Med 05/15/25 08:21 Discontinued 10 mg IVP Q15M PRN Labetalol IV [Trandate IV] Med 05/15/25 10:40 Active 10 mg IVP Q15MIN PRN Labetalol IV [Trandate IV] Med 05/15/25 10:17 Discontinued 10 mg IVP X1 ONE Labetalol IV [Trandate IV] Med 05/15/25 10:12 Discontinued 100 mg .ROUTE .STK-MED ONE Ondansetron Inj [Zofran Inj] Med 05/15/25 08:21 Active 4 mg IVP Q4HR PRN Propofol 1,000 mg Ivpb [Diprivan Ivpb] Med 05/15/25 09:05 Active 1,000 mg in 100 ml IV 5 mcg/kg/min Prothrombin Complex Concent [Kcentra IV] 2,000 unit Med 05/15/25 08:50 Discontinued Sterile Water 80 ml Container,Empty 150 ml [Empty Container Bag 150 ml] 1 bag IV X1 Sodium Chloride 0.9% 1000 ml [Ns] 1,000 ml Med 05/15/25 08:30 Active IV Q10H Succinylcholine Inj [Anectine Inj] Med 05/15/25 09:05 Discontinued 100 mg IV X1 ONE Mechanical [Volume Ventilator] Stat RT 05/15/25 Active Oxygen Delivery NOW RT 05/15/25 08:22 Active Vital Signs Vital signs: Vital Signs Oxygen Flow Rate 4 05/15/25 08:22 Neuro Symptoms / Deficit MDM Narrative MDM Narrative:: I, Lisa Reynolds, am scribing for and in the presence of Dr. Zheng. 80 year old female with past medical history for hypertension, hyperlipidemia, CAD, dementia, OR, arthritis, and osteoporosis presents to the Emergency Department [facility] from [facility] with complaint of altered mental status 15-20 minutes prior to arrival, so about 750-755AM. Per EMS, alf reported the patient was altered including not talking, which is abnormal for her. Per EMS, BP was 175/90, HR 106, and satting at 98% on 2 L/min. No other complaints reported. Patient data External records reviewed:: [facility] previous records and EMS form Clinical information provided by:: EMS Social determinants that could affect healthcare access:: housing ([facility]) Patient has the following chronic illnesses:: Hypertension, hyperlipidemia, CAD, dementia, OR, arthritis, and osteoporosis. Code Status: Full code How is presenting disease/condition affected by chronic disease/condition?: exacerbated by Evaluation data The following diagnostics were reviewed and interpreted by me:: lab results, radiology exam(s) and EKG tracing(s) (My interpretation of the EKG is: Sinus rhythm (93 bpm) with nonspecific ST-T changes. Bryce Zheng MD) Lab and/or radiology exams considered but not ordered:: none Interpretation Summary: I reviewed all diagnostic test results. My interpretation of the EKG is sinus rhythm with no acute ST?T changes. My interpretation of the chest x-ray is NAD. My review of the head CT report is?large acute left basal ganglia hemorrhage. My review of the head/neck CTA report is NAD. Blood tests and urine tests remarkable for lactic acid 2.5 and LFT elevation. Medications / Prescriptions Medications or Prescriptions considered but not ordered:: none Medication administrations:: Medication Administration History Sodium Chloride (Ns) 1,000 mls @ 100 mls/hr IV Q10H LINDEN Stop: 06/14/25 08:29 Last Admin: 05/15/25 09:13 Dose: 100 mls/hr Documented By: TM Propofol (Diprivan Ivpb) 1,000 mg in 100 mls @ 2.265 mls/hr IV .Q24H PRN; Protocol PRN Reason: PER PROTOCOL Stop: 06/14/25 09:04 Last Titration: 05/15/25 10:35 Dose: 15 mcg/kg/min, 6.795 mls/hr Documented By: Titration: 05/15/25 10:11 Dose: 15 mcg/kg/min, 6.795 mls/hr Documented By: Titration: 05/15/25 10:06 Dose: 10 mcg/kg/min, 4.53 mls/hr Documented By: Admin: 05/15/25 10:01 Dose: 5 mcg/kg/min, 2.265 mls/hr Documented By: TM Co-signed By: JOSEPHINE Labetalol HCl (Labetalol Inj 5 Mg/Ml Vial 20 Ml) 10 mg IVP Q15MIN PRN PRN Reason: Blood Pressure - High Stop: 06/14/25 10:39 Ondansetron HCl (Ondansetron Inj 2 Mg/Ml Inj 2 Ml) 4 mg IVP Q4HR PRN PRN Reason: NAUSEA OR VOMITING Stop: 06/14/25 08:20 Discontinued Medications Etomidate (Etomidate Inj 2 Mg/Ml Vial 10 Ml) 20 mg IVP X1 ONE Stop: 05/15/25 09:06 Last Admin: 05/15/25 09:45 Dose: 20 mg Documented By: AMANDEEP Esmolol HCl (Esmolol In Ns 2000 Mg Ivpb) 2,000 mg in 100 mls @ 113.25 mls/hr IV .Q53M PRN; Protocol PRN Reason: PER PROTOCOL Stop: 06/14/25 08:44 Prothrombin Complex Concent ( Human) 2,000 unit/ Sterile Water 80 ml/ IV Miscellaneous Supplies 80 mls @ 320 mls/hr IV X1 ONE Stop: 05/15/25 09:04 Last Infusion: 05/15/25 09:45 Dose: Infused Documented By: Admin: 05/15/25 09:30 Dose: 320 mls/hr Documented By: TM Labetalol HCl (Labetalol Inj 5 Mg/Ml Vial 20 Ml) 10 mg IVP Q15M PRN PRN Reason: HIGH BP Labetalol HCl (Labetalol Inj 5 Mg/Ml Vial 20 Ml) 10 mg IVP X1 ONE Stop: 05/15/25 10:18 Last Admin: 05/15/25 10:24 Dose: 10 mg Documented By: TM Labetalol HCl (Labetalol Inj 5 Mg/Ml Vial 20 Ml) Confirm Administered Dose 100 mg .ROUTE .STK-MED ONE Stop: 05/15/25 10:13 Last Admin: 05/15/25 10:33 Dose: Not Given Documented By: TM Non-Admin Reason: Override Medication Succinylcholine Chloride (Succinylcholine Inj 20 Mg/Ml Vial 10 Ml) 100 mg IV X1 ONE Stop: 05/15/25 09:06 Last Admin: 05/15/25 09:47 Dose: 100 mg Documented By: TM Treatment here included IV fluid, Kcentra, and labetalol. Patient intubated to protect her airways. See procedure note. Etomidate 20 mg and succinylcholine 100 mg and propofol drip used. Consultations Consultation(s) initiated? (list below): Yes Consultation #1 (Physician, Specialty, Details): I discussed the case with our telehealth neurologist.? About the presentation and exam and diagnostics and treatments here.? Recommended transfer to neurosurgery. Consultation #2 (Physician, Specialty, Details): I discussed the case with Dr. Arceo ([facility] Neurosurgery).? About the presentation and exam and diagnostics and treatments here.? And need of further care there. Accepted the patient. Diagnosis Neuro Differential Diagnosis: convulsions, delirium, subarachnoid hemorrhage, cerebrovascular accident, transient cerebral ischemia and other (UTI, pneumonia, sepsis) Most likely diagnosis given after review of the tests above:: Intracranial hemorrhage Admission Indicated Admission indicated?: not indicated Explain why admission is indicated or not indicated:: No neurosurgery service here at this facility. Admission Request Was there a request for admission?: No Disposition Plan Disposition Plan: Transfer Critical Care Time Critical Care Time Critical Care Time: Yes Total Critical Care Time (min.): 48 Attestation: Due to a high probability of clinically significant, life threatening deterioration, the patient required my highest level of preparedness to intervene emergently and I personally spent this critical care time directly and personally managing the patient. This critical care time included obtaining a history; examining the patient; ordering and review of studies; arranging urgent treatment with development of a management plan; evaluation of patient's response to treatment; frequent reassessment; and discussions with family and other providers. It was exclusive of separately billable procedures and treating other patients and teaching time. Bryce Zheng MD Discharge Plan Plan Patient Disposition: [facility] Pt Being Transferred to: [facility] Service Needed for Transfer: Neurosurgery Prescriptions/Referrals Prescriptions/Med Rec: No Action latanoprost 0.005 % drops 1 drp OPHTHALMIC (EYE) HS Rx Instructions: sánchez. eyes acetaminophen 325 mg Tablet 650 mg PO Q6HR PRN (Reason: Pain) Rx Instructions: do not exceed 3gm in 24 hrs oxybutynin chloride 5 mg tablet extended release 24hr 1 tab PO QDAY Eliquis 5 mg tablet 1 tab PO BID atorvastatin 10 mg tablet 10 mg PO HS amlodipine 2.5 mg tablet 2.5 mg PO QDAY Rx Instructions: hold for BP <110/60 or HR <60 cholecalciferol (vitamin D3) 25 mcg (1,000 unit) Tablet 2,000 unit PO QDAY metoprolol tartrate 25 mg tablet 25 mg PO QDAY Rx Instructions: hold for BP <110/60 or HR <60 magnesium hydroxide [Milk of Magnesia] 400 mg/5 mL Suspension 30 ml PO Q24H PRN (Reason: Constipation) Rx Instructions: give every 24hours as needed for constipation if no BM for 3 days bisacodyl [Dulcolax (bisacodyl)] 10 mg Suppository 10 mg AR UD PRN (Reason: Constipation) Rx Instructions: Q48 HRS PRN Fleet Enema 19-7 gram/118 mL Enema 118 ml AR Q72H PRN (Reason: Constipation) Rx Instructions: to be administered if dulcolax suppository is ineffective pantoprazole [Protonix] 40 mg tablet,delayed release (DR/EC) 40 mg PO QDAY Referrals: Lakhwinder Lu MD [Primary Care Provider] - In 1 week Problem List Clinical Impression: Intracranial hemorrhage Patient/Caregiver Discharge Instructions Print Language: Slovenian Stand Alone Forms: [facility] Award Info., Patient Portal Info Letter
--- NOTE | 2025-05-15 08:22 | XR_ITS ---
Examination: CT brain head without contrast. 2-D sagittal coronal reconstructions Date and time of exam:May 2025 0829 hrs. CTDI: vol (mGy):47.8 DLP: (mGycm):963 Indications: Stroke alert, onset focal neurologic deficit today Technique: Multiple CT axial sections of the brain have been obtained, 5 mm slice thickness. Contrast has not been administered. 2-D sagittal, coronal reconstructions have been obtained Low dose protocols were performed. One or more of the following dose reduction techniques were used; automated exposure control, adjustment of the mA and/or KV according to patient size, use of iterative reconstruction technique. Findings: Large acute hemorrhage in the left basal ganglia which has ruptured into the ventricular system. Mass effect upon the left lateral ventricular system, shift of the frontal horns to the right 5 mm. Cranial vault is intact. Fourth ventricle midline Impression: Large acute left basal ganglia hemorrhage which has ruptured into the ventricular system with mass effect
--- NOTE | 2025-05-15 08:22 | EKG_ITS ---
[facility] Test Date: 2025-05-15 Pat Name: NATHANIEL BOOTH Department: Room: - Gender: Female [employer] Machine Operator: : [id number] Requested By: Bryce Phillips Order Number: [id number] Reading MD: Bryce Phillips Measurements Intervals [place] Rate: 93 P: 31 ME: 199 QRS: -40 QRSD: 85 T: 5 QT: 387 QTc: 484 Interpretive Statements SINUS RHYTHM POSSIBLE ANTERIOR MYOCARDIAL INFARCTION , PROBABLY OLD [30 ms Q WAVE IN V3/V4, OR R < 0.2 mV IN V4] INFERIOR MYOCARDIAL INFARCTION , PROBABLY OLD [40+ ms Q WAVE AND/OR ST/T ABNORMALITY IN II/aVF] Compared to ECG 05/27/2023 10:50:43 Sinus tachycardia no longer present Left-axis deviation no longer present Myocardial infarct finding still present /store/S0/[id number]/ecg/[id number].pdf
--- NOTE | 2025-05-15 08:22 | XR_ITS ---
Examination: CTA carotids with intravenous contrast CTA brain, head with intravenous contrast. 2-D sagittal, coronal reconstructions. 3-D reconstructions. Exam date and time: May 15, 2025, 0848 hrs. Indications: Stroke alert, onset focal neurologic deficit today, large acute hemorrhage left basal ganglia which has ruptured into the ventricular system on CT brain scan today CTDI: vol (mGy) 17.65 DLP: (mGycm) 413 Technique: Multiple CTA axial brain, head carotid images post intravenous contrast injection 75 cc, [id number]. 2-D sagittal, coronal reconstructions. 3-D reconstructions, 3-D post processing including vascular maximum intensity projection images. Low dose protocols were performed. One or more of the following dose reduction techniques were used; automated exposure control, adjustment of the mA and/or KV according to patient size, use of iterative reconstruction technique. Findings: No significant common carotid carotid bifurcation or internal carotid artery stenoses Codominant vertebral arteries in the neck with no critical stenoses. Multiple bilateral thyroid nodules No cerebral large vessel arterial occlusions or thrombus Large hemorrhage in the left basal ganglia Impression: No significant neck arterial stenoses No cerebral large vessel arterial occlusions
[2025-05-15 08:48] VITALS: PULSE 106; O2SAT 96
--- NOTE | 2025-05-15 08:50 | PC.CC ---
Addendum entered by Rula Frost RN 05/15/25 10:48: two charts printed, all paperwork given to charge nurse Addendum entered by Rula Frost RN 05/15/25 10:26: CD being made now after all imaging has been done Addendum entered by Rula Frost RN 05/15/25 10:09: PCS and facesheet faxed to [facility], all consents and forms signed by Addendum entered by Rula Frost RN 05/15/25 09:27: Reach called back and stated eta will be 71 minutes, Annmarie at [facility] updated on ETA Addendum entered by Rula Frost RN 05/15/25 09:13: Spoke to reach transport eta is 30 min, Spoke to Marce at [facility] to update about patient being intubated, she states we are ok to proceed with transfer Addendum entered by Rula Frost RN 05/15/25 09:05: Patient accepted to [facility] by Annmarie under Dr. Nielsen ED to ED, report to be called to [phone] Original Note: Spoke to Annmarie at [facility] transfer center, chart faxed, call transferred to Dr. Zheng, images pushed
[2025-05-15 08:52] VITALS: BP 157/95; PULSE 82; RESP 17; TEMP 36.4; O2SAT 97
[2025-05-15] MEDS: SODIUM CHLORIDE 0.9% 1000 ML 1,000 ML 100 ML IV (09:13)
[2025-05-15 09:14] LABS: Collection Type, Urine Clean Catch
[2025-05-15 09:18] LABS: Basophils # (Auto) 0.0 Thou/mm3 (0.0-0.2); Basophils % (Auto) 0 % (0-2.5); Eosinophils # (Auto) 0.2 Thou/mm3 (0.0-0.5); Eosinophils % (Auto) 2 % (0-10); Hematocrit 52.7 % (36.0-46.0); Hemoglobin 16.9 g/dL (12.0-16.0); Immature Granulocytes Auto 0.10 Thou/mm3 (0.00-0.00); Lymphocytes # (Auto) 2.4 Thou/mm3 (1.0-4.8); Lymphocytes % (Auto) 22 % (10-50); Mean Corpuscular HGB Conc 32.1 g/dl (31.0-37.0); Mean Corpuscular Hemoglobin 28.7 pg (25.0-35.0); Mean Corpuscular Volume 90 fL (80-100); Monocytes # (Auto) 0.6 Thou/mm3 (0.0-0.8); Monocytes % (Auto) 6 % (0-12); Neutrophils # (Auto) 7.7 Thou/mm3 (1.8-7.7); Neutrophils % (Auto) 70 % (37-80); Nucleated Red Blood Cell # 0.00 Thou/mm3 (0.00-0.00); Nucleated Red Blood Cell % 0 /100 WBC (0); Platelet Count 204 Thou/mm3 (140-440); RDW Standard Deviation 44.1 fL (36.4-46.3); Red Blood Count 5.88 Miln/mm3 (4.00-5.20); White Blood Count 11.0 Thou/mm3 (3.6-11.0)
[2025-05-15 09:23] LABS: Bilirubin,Urine Negative (Negative); Blood,Urine 1+ (Negative); Clarity,Urine Clear (Clear/Hazy); Color,Urine Colorless (Lt Yel-Yel); Glucose, Urine Negative (Negative); Ketones,Urine Negative (Negative); Leukocyte Esterase,Urine Negative (Negative); Nitrite,Urine Negative (Negative); PH,Urine 7.5 (5.0-7.0); Protein,Urine Negative (Neg - Trace); RBC,Urine 1 /hpf (0-3); Specific Gravity,Urine 1.039 (1.001-1.035); Squamous Epithelial Cell,Urine 1 /hpf (0-5); Urobilinogen,Urine Negative mg/dL (0.0-1.0); WBC,Urine 4 /hpf (0-5)
[2025-05-15 09:28] LABS: Sed Rate (ESR) 22 mm/hr (0-30)
[2025-05-15] MEDS: PROTHROMBIN COMPLEX CONCENT 2,000 UNIT, Sterile Water 80 ML in CONTAINER,EMPTY 150 ML 1... 320 UNIT IV (09:30)
[2025-05-15 09:35] LABS: INR 1.1 (0.9-1.3); Partial Thromboplastin Time 27.9 Seconds (22.0-36.0); Prothrombin Time 11.6 Seconds (9.0-12.2)
[2025-05-15 09:38] LABS: Lactate (Lactic Acid) 2.5 mMol/L (0.4-2.0)
[2025-05-15] MEDS: ETOMIDATE INJ 2 MG/ML VIAL 10 ML 20 MG IVP (09:45)
[2025-05-15] MEDS: SUCCINYLCHOLINE INJ 20 MG/ML VIAL 10 ML 100 MG IV (09:47)
[2025-05-15 09:48] LABS: B-Type Natriuretic Peptide < 20 pg/mL (0-100)
[2025-05-15 09:50] VITALS: BP 150/104; PULSE 68; RESP 17; O2SAT 100
--- NOTE | 2025-05-15 09:50 | XR_ITS ---
Examination: AP chest single view Technique one AP portable supine chest single view Date and time: May 15, 2025, 10:18 AM Comparison May 15, 2025, 0921 hrs. Indications: Hypoxic respiratory failure postintubation Findings: Endotracheal tube tip is at the origin of the right mainstem bronchus Moderate enlargement left ventricle Moderate vascular congestion Prominent osteopenia Impression: Retract the endotracheal tube 2 cm
[2025-05-15] MEDS: PROPOFOL 1,000 MG IVPB 1,000 MG/100 ML VIAL 2.265 MG IV (10:01)
[2025-05-15 10:03] VITALS: PULSE 85; RESP 14; O2SAT 100
--- NOTE | 2025-05-15 10:13 | PD.TNEURO ---
Tele Neuro Consultation Consultation Date 05/15/25 Most Recent Vital Signs Last Vital Signs Temp 97.6 F 05/15/25 08:52 Pulse 85 05/15/25 10:03 Resp 17 05/15/25 08:52 BP 157/95 H 05/15/25 08:52 Pulse Ox 100 05/15/25 10:03 O2 Del Method Nasal Cannula 05/15/25 08:52 O2 Flow Rate 4 05/15/25 08:52 FiO2 100 05/15/25 10:03 Laboratory-Coagulation Panel PT 11.6 Seconds (9.0-12.2) 05/15/25 08:30 INR 1.1 (0.9-1.3) 05/15/25 08:30 APTT 27.9 Seconds (22.0-36.0) 05/15/25 08:30 Consultation Narrative [facility] Tele[facility]urology [facility] Patient Name:???Ozzie Manzano Date of :???1945 Identification Number:??? Date of Service:???05/15/2025 08:18:42 Diagnosis:?I61.9 - Intracerebral haemorrhage, unspecified Impression: 80 yo female presenting from longterm found to have large Left BG hemorrhage with IVH. She is on Eliquis, so this needs to be reversed. Suspect hypertensive etiology. Please aggressively treat blood pressure. Transfer for STAT neurosurgery consult. Recommendation: Diagnostic Studies: ?Repeat CT head in first 8-12hrs Laboratory Studies:? INR/PT ? aPTT? CBC Medications:? Hold?antiplatelet?therapy/NSAIDS/Anticoagulation ? Warfarin/Coumadin/DOAC reversal per hospital protocol Nursing Recommendations: ? Telemetry, IV Fluids?Avoid dextrose containing fluids, Maintain euglycemia ? Head of bed 30 degrees ? Neuro checks q1-2?hrs?during ICU stay ? Once stable neuro checks q4?hrs ? keep BP less than 140/90's with goal of 130/80s Consultations: ? Need Neurosurgery consultation?STAT ? Recommend Speech therapy if failed dysphagia screen ? Physical therapy/Occupational therapy DVT Prophylaxis: ? SCDs Disposition: ? Neurology will Follow Metrics: Last Known Well: Unknown Dispatch Time: 05/15/2025 08:18:42 Arrival Time: 05/15/2025 08:10:00 Initial Response Time: 05/15/2025 08:22:16Symptoms: altered mental status. Initial patient interaction: 05/15/2025 08:23:58 NIHSS Assessment Completed: 05/15/2025 08:31:08Patient is not a candidate for Thrombolytic. Thrombolytic Medical Decision: 05/15/2025 08:31:08Patient was not deemed candidate for Thrombolytic because of following reasons: Current intracranial hemorrhage . CT Head: I personally reviewed all the CT images that were available to me and it showed: large Left BG hemorrhage with IVH Primary Provider Notified of Diagnostic Impression and Management Plan on: 05/15/2025 08:35:23 History of Present Illness:Patient is a 80 year old Female. Patient was brought by EMS for symptoms of altered mental status. Patient presenting from her nursing facility. History is extremely limited. Unclear when she was last completely normal. 25 minutes prior to arrival patient was noted to have altered mental status. I am told she has baseline Left sided weakness from a prior stroke. Per chart review, she also has baseline aphasia. ? Past Medical History: ?Hypertension ?Hyperlipidemia ?Stroke Medications: Anticoagulant use:??Yes?Eliquis No Antiplatelet use Reviewed EMR for current medications Allergies:? Reviewed Social History: Unable To Obtain Due To Patient Status :?Patient Cannot Communicate Relevant Social History Family History: There is no family history of premature cerebrovascular disease pertinent to this consultation ROS : 14 Points Review of Systems was performed and was negative except mentioned in HPI. Past Surgical History: There Is No Surgical History Contributory To Today?s Visit ? Examination: BP(185/110),?Pulse(106),?Blood Glucose(200) 1A: Level of Consciousness - Movements to Pain?+ 2 1B: Ask Month and Age - Aphasic?+ 2 1C: Blink Eyes & Squeeze Hands - Performs 0 Tasks?+ 2 2: Test Horizontal Extraocular Movements - Forced Gaze Palsy: Cannot Be Overcome?+ 2 3: Test Visual Calix - No Visual Loss?+ 0 4: Test Facial Palsy (Use Grimace if Obtunded) - Normal symmetry?+ 0 5A: Test Left Arm Motor Drift - No Effort Against [place]?+ 3 5B: Test Right Arm Motor Drift - No Movement?+ 4 6A: Test Left Leg Motor Drift - No Effort Against [place]?+ 3 6B: Test Right Leg Motor Drift - No Effort Against [place]?+ 3 7: Test Limb Ataxia (FNF/Heel-Alejandro) - No Ataxia?+ 0 8: Test Sensation - Normal; No sensory loss?+ 0 9: Test Language/Aphasia - Mute/Global Aphasia: No Usable Speech/Auditory Comprehension?+ 3 10: Test Dysarthria - Mute/Anarthric?+ 2 11: Test Extinction/Inattention - No abnormality?+ 0 NIHSS Score:?26 ICH Score: 3 Kayy Coma Score:5-12 (+1) Age >= 80:Yes (+1) ICH volume >= 30mL:No (0) Intraventricular hemorrhage:Yes (+1) Infratentorial origin of hemorrhage:No (0) Pre-Morbid Modified Sussex Scale:5 Points = Severe disability; bedridden, incontinent and requiring constant nursing care and attention This consult was conducted in real time using interactive audio and video technology. Patient was informed of the technology being used for this visit and agreed to proceed. Patient located in hospital and provider located at home/office setting. Due to the immediate potential for life-threatening deterioration due to underlying acute neurologic illness, I spent 30 minutes providing critical care. This time includes time for face to face visit via telemedicine, review of medical records, imaging studies and discussion of findings with providers, the patient and/or family. Dr Attila Lockwood [facility] For Inpatient follow-up with [facility] physician please call [facility] at . As we are not an outpatient service for any post hospital discharge needs please contact the hospital for assistance. If you have any questions for the [facility] physicians or need to reconsult for clinical or diagnostic changes please contact us via [facility] at .
[2025-05-15 10:21] LABS: Alanine Aminotransferase 54 U/L (10-49); Albumin, Serum 3.4 gm/dL (3.4-4.8); Albumin/Globulin Ratio 0.9 (1.2-2.2); Alkaline Phosphatase 171 U/L (46-116); Anion Gap 13 (7-16); Aspartate Amino Transferase 146 U/L (0-34); BUN/Creatinine Ratio 9 Ratio (12-20); Bilirubin,Direct 1.6 mg/dL (0.0-0.3); Bilirubin,Total 4.6 mg/dL (0.3-1.2); Blood Urea Nitrogen 6 mg/dL (9-23); C-Reactive Protein < 0.5 mg/dL (0.0-0.9); Calcium 8.4 mg/dL (8.3-10.6); Calcium (Corrected) 8.9 mg/dL (8.5-10.1); Carbon Dioxide 23.2 mMol/L (20.0-31.0); Chloride 106 mMol/L (98-107); Creatinine (Component) 0.7 mg/dL (0.6-1.3); Free T4 (Free Thyroxine) 0.85 ng/dL (0.89-1.76); Globulin 3.9 gm/dL (2.3-3.5); Glucose 103 mg/dL (74-106); Magnesium 2.0 mg/dL (1.6-2.6); Osmolality,Calculated 280 (275-295); Potassium 4.5 mMol/L (3.4-5.1); Procalcitonin 0.06 ng/ml (0.0-0.49); Sodium 142 mMol/L (136-145); Thyroid Stimulating Hormone 0.84 uIU/mL (0.55-4.78); Total Protein 7.3 gm/dL (5.7-8.2); Troponin I < 0.020 ng/mL (0.0-0.045); eGFR > 60 See Note
[2025-05-15 10:24] VITALS: BP 218/114; PULSE 87
[2025-05-15] MEDS: LABETALOL INJ 5 MG/ML VIAL 20 ML 10 MG IVP (10:24)
--- NOTE | 2025-05-15 10:25 | PC.NURSE ---
ADMINISTRATION OF BP MEDICATION DELAYED AT TIME OF ORDER, THIS RN AND AVAILABLE STAFF HAD NOT RECEIVED APPROPRIATE TRAINING ON SAFE ADMINISTRATION OF THE SPECIFIC MEDICATION ORDERED. THIS RN ATTEMPTED FURTHER GUIDANCE FROM [employer] PROFESSOR, FELLOW ED RNS, ICU RNS, AND PHARMACY. DELAY WAS NECESSARY TO ENSURE PATIENT SAFETY. THIS RN REQUESTED ORIGINAL ORDER FOR LABETALOL TO LOWER BP.
[2025-05-15 10:30] VITALS: BP 160/98; PULSE 57; RESP 16; O2SAT 100
[2025-05-15 12:34] LABS: Reflex Lactate? Y
== END 2025-05-15 11:46 | disposition short-term general hospital (02) ==
PROVIDERS: Emergency Provider Emergency Medicine; PCP Internal Medicine
DX: I61.0 Nontraumatic intracerebral hemorrhage in hemisphere, subcortical (principal); I10 Essential (primary) hypertension; R29.726 NIHSS score 26; R94.31 Abnormal electrocardiogram [ECG] [EKG]; Z75.1 Person awaiting admission to adequate facility elsewhere
CPT/HCPCS: 31500; 36415; 36600; 70450; 70496; 70498; 71045; 80053; 81001; 82248; 82803; 83605; 83735; 83880; 84145; 84439; 84443; 84484; 85025; 85610; 85652; 85730; 86140; 87040; 87086; 93005; 94002; 96365; 96375; 99291; A4216; A4649; J0330; J2704; J3490; J7030; J7168; Q9967; J1920